=== PATIENT | female | born 1950 | race Caucasian/White ===

== ENCOUNTER 2016-08-10 16:11 | Emergency (ER) ==
[2016-08-10 16:26] VITALS: TEMP 97.7; BMI 42.5
--- NOTE | 2016-08-10 19:23 | ED.PDOC ---
[id number]: i worked out on treadmill and hurt my shoulders--im not hurting now i feel better --i dont want to be seen in the er Time Seen by Physician: 19:22 Mode of Arrival: Walk-In Information Source: Patient, Family Exam Limitations: No limitations Primary Care Provider: JORDANA TEE Nursing and Triage Documentation Reviewed and Agree: Yes Musculoskeletal Complaint Exam - Shoulder Pain Complaint/Exam Mechanism of Injury: Reports: No known trauma Onset/Duration: afew hours Symptoms Are: Still present Timing: Intermittent Initial Severity: Mild Current Severity: Mild Location: Reports: Discrete (both shoulders) Character: Reports: Dull, Aching, Stiffness Alleviating: Reports: None Aggravating: Reports: Movement, Lifting, Flexion, Extension, Internal rotation, External rotation Associated Signs and Symptoms: Denies: Swelling, Redness, Bruising, Fever, Weakness, Numbness, Tingling Non-Orthopedic Risk Factors: Reports: None Tenderness: Present: Rotator cuff muscles Differential Diagnoses: Arthritis, Rotator Cuff Injury, Sprain, Strain, Bursitis Review of Systems - Review Of Systems Constitutional: Reports: No symptoms Eyes: Reports: No symptoms Ears, Nose, Mouth, Throat: Reports: No symptoms Respiratory: Reports: No symptoms Cardiac: Reports: No symptoms GI: Reports: No symptoms : Reports: No symptoms Musculoskeletal: Reports: Joint pain Skin: Reports: No symptoms Neurological: Reports: No symptoms Endocrine: Reports: No symptoms Hematologic/Lymphatic: Reports: No symptoms All Other Systems: Reviewed and Negative Past Medical History - Past Medical History Endocrine: Reports: Unknown Cardiovascular: Reports: Unknown Respiratory: Reports: Unknown Hematological: Reports: Unknown Gastrointestinal: Reports: Unknown Genitourinary: Reports: Unknown Neuro/Psych: Reports: Unknown Musculoskeletal: Reports: Unknown Cancer: Reports: Unknown Last Menstrual Period: 2010 - Surgical History General Surgical History: Reports: Unknown - Family History Family History: Reports: Unknown - Social History Smoking Status: Never smoker Hx Substance Use: No Alcohol Screening: None Lives: With family - Immunizations Tetanus Shot up to Date: Yes Physical Exam - Physical Exam Appearance: Well-appearing, No pain distress, Well-nourished Eyes: GLORIA ENT: Ears normal Neck: Supple Respiratory: Airway patent, Breath sounds clear, Breath sounds equal, Respirations nonlabored Cardiovascular: RRR, Pulses normal, No rub, No murmur GI/: Soft, Nontender, No masses, Bowel sounds normal, No Organomegaly Musculoskeletal: Normal strength Skin: Warm, Dry, Normal color Neurological: Sensation intact, Motor intact, Reflexes intact, Cranial nerves intact, Alert, Oriented Psychiatric: Affect appropriate, Mood appropriate Re-Evaluation - Re-Evaluation Time of Re-Evaluation: 19:23 Status: Improved (no pain--bp improved) Vital Signs Stable: Yes Pain Level: 0 Appearance: NAD Lungs: Clear Skin: Warm and Dry Neuro: Alert and Oriented X3 CV: RRR Critical Care Note - Critical Care Note Total Time (mins): 0 Course - Course Orders, Labs, Meds: she waited in the er and her pain resolved--she decided she didnt want to be seen--declines xrays, labs and ekg--warned it could be cardiac but decided not to be seen Vital Signs: Temp Pulse Resp BP Pulse Ox 08/10/16 19:00 194/92 H 08/10/16 16:12 97.7 F 83 20 200/126 H 98 Departure - Departure Time of Disposition: 19:24 Disposition: AMA Discharge Problem: Shoulder pain Instructions: Shoulder Pain (ED) Condition: Good Pt referred to PMD for follow-up: Yes Additional Instructions: return if symptoms come back Allergies/Adverse Reactions: Allergies Penicillins Adverse Reaction (Verified 08/10/16 20:52) Home Medications: Ambulatory Orders Aspirin 81 mg PO DAILY 08/10/16 Cholecalciferol (Vitamin D3) [Vitamin D3] 1,000 unit PO DAILY 08/10/16 Clonidine HCl 0.2 mg PO DAILY 08/10/16 Lisinopril/Hydrochlorothiazide [Zestoretic 20-12.5 mg Tablet] 1 each PO DAILY Metformin HCl [Fortamet] 500 mg PO TID 08/10/16 Simvastatin 20 mg PO BEDTIME 08/10/16 Disposition Discussed With: Patient, Family
[2016-08-12 07:38] VITALS: BP 194/92
== END 2016-08-11 04:15 | disposition left against medical advice (07) ==
LOC: ED 16:11
DX: M25.512 Pain in left shoulder (principal); M25.511 Pain in right shoulder; R03.0 Elevated blood-pressure reading, without diagnosis of hypertension; Z79.899 Other long term (current) drug therapy; K63.1 Perforation of intestine (nontraumatic); M54.9 Dorsalgia, unspecified
CPT/HCPCS: 36415; 80053; 81001; 82150; 82550; 83690; 84484; 85025; 85379; 85651; 87086; 87186; 93005; 93010; 96361; 96365; 96375; 99284; 99285

== ENCOUNTER 2016-08-10 20:34 | Emergency (ER) ==
[2016-08-10 20:34] VITALS: BMI 42.5
[2016-08-10 20:46] VITALS: BP 178/97; TEMP 99.1
[2016-08-10] MEDS ORDERED: SODIUM CHLORIDE 1,000 ML IV STA (20:52)
[2016-08-10] MEDS ORDERED: TORADOL IVP STA (20:54)
[2016-08-10] MEDS ORDERED: MORPHINE 2 MG/ML SYRINGE IVP STA (20:54)
[2016-08-10] MEDS ORDERED: ZOFRAN 4 MG/2 ML IVP STA (20:54)
[2016-08-10 21:12] LABS: BASOPHILS % (AUTO) 0.3 % (0.0-3.0); HEMATOCRIT 40.8 % (37.0-47.0); HEMOGLOBIN 13.4 g/dl (12.0-16.0); IMMATURE GRANULOCYTE % (AUTO) 0.3 % (0.0-5.0); LYMPHOCYTES # (AUTO) 2.7 K/uL (0.60-3.4); LYMPHOCYTES % (AUTO) 17.6 (10.0-50.0); MEAN CORPUSCULAR HEMOGLOBIN 28.5 pg (27.0-31.0); MEAN CORPUSCULAR HGB CONC 32.8 (31.8-35.4); MEAN CORPUSCULAR VOLUME 86.8 fl (81.0-99.0); MONOCYTES # (AUTO) 0.6 K/uL (0.4-2.0); MONOCYTES % (AUTO) 3.9 (0-10); NEUTROPHILS # (AUTO) 12.1 K/ul (2.0-6.9); NEUTROPHILS % (AUTO) 77.9; PLATELET COUNT 300 10^3/uL (140-440); WHITE BLOOD COUNT 15.53 K/ul (4.6-10.2)
[2016-08-10 21:37] LABS: ALANINE AMINOTRANSFERASE 22 U/L (12-78); ALBUMIN 3.9 g/dL (3.4-5.0); ALBUMIN/GLOBULIN RATIO 0.98; ALKALINE PHOSPHATASE 90 U/L (53-141); AMYLASE 33 U/L (25-115); ANION GAP 17.2; ASPARTATE AMINO TRANSFERASE 17 U/L (15-37); BILIRUBIN,TOTAL 0.69 mg/dL (0.00-1.20); BLOOD UREA NITROGEN 17 mg/dL (7-18); BUN/CREATININE RATIO 17.34; CALCIUM 9.9 mg/dL (8.2-10.2); CARBON DIOXIDE 25 mmol/L (23-31); CHLORIDE 99 mmol/L (98-107); CREATINE KINASE 106 U/L; CREATININE 0.98 mg/dL (0.60-1.30); GLUCOSE 198 mg/dL (82-115); LIPASE 23 U/L (8-78); POTASSIUM 4.2 mmol/L (3.5-5.10); SODIUM 137 mmol/L (136-145); TOTAL PROTEIN 7.9 g/dL (5.8-8.1)
[2016-08-10] MEDS ORDERED: AZACTAM ONE (23:59)
[2016-08-11 01:37] LABS: ERYTHROCYTE SEDIMENTATION RATE 52 mm/hr (0-20); ESR INTERNAL QC INTERNAL QC VALID
[2016-08-11] MEDS ORDERED: AZACTAM 1 GM in SODIUM CHLORIDE 50 ML IV STA (03:03)
[2016-08-11 05:55] LABS: KETONES,URINE NEGATIVE (NEGATIVE); PH,URINE 5.5 (5-9); PROTEIN,URINE NEGATIVE (NEGATIVE); URINE, BLOOD NEGATIVE (NEGATIVE)
[2016-08-11 05:56] LABS: ADD URINE MICROSCOPIC YES; BILIRUBIN,URINE NEGATIVE (NEGATIVE); LEUKOCYTE ESTERASE ,URINE 1+ (NEGATIVE); NITRITE,URINE POSITIVE (NEGATIVE)
[2016-08-11 05:57] LABS: BACTERIA,URINE 4+ (NOT PRESENT)
--- NOTE | 2016-08-11 08:17 | CT ---
EXAM: CTA thorax HISTORY: Left shoulder pain COMPARISON: CTA thorax 01/21/2012 FINDINGS: Contiguous axial images obtained through the thorax following uneventful administration o f intravenous contrast utilizing 3-mm collimation. Sagittal, coronal oblique reconstructions were im aged and reviewed. Source images were utilized create rotating 3-D MIP images The thoracic inlet i s unremarkable. The heart is normal in size without pericardial effusion. There is no evidence of aneurysm, dissection or pulmonary embolus. Dependent atelectasis is seen in both posterior gutter r egions. There is a large amount free intraperitoneal air. Degenerative changes are seen within the mid and lower thoracic spine. IMPRESSION: There is no evidence of aneurysm, dissection or pulmonary embolus. There is a large amount of free intraperitoneal air. Critical results: Results were conveyed via telephone emergency room physician 11:11 p.m. 08/10/2016
--- NOTE | 2016-08-11 08:17 | CT ---
EXAM: CT of the abdomen and pelvis with IV contrast. HISTORY: Abdominal pain. PROCEDURE: After the intravenous injection of contrast contiguous axial CT images of the abdomen an d pelvis were obtained with coronal and sagittal reformats. FINDINGS: The liver, gallbladder, pancreas, spleen, adrenal glands and kidneys are normal in appear ance. The abdominal aorta is within normal limits in diameter. The appendix is not visualized. Th ere is diverticulosis of the colon with no evidence of diverticulitis. There is a large amount of f ree intraperitoneal air consistent with a perforated viscus. No free fluid in the abdomen or pelvis . The bladder is minimally filled with no abnormality identified. Uterus is unremarkable. There a re degenerative changes in the spine. Impression: Large amount of free intraperitoneal air consistent with a perforated viscus. The sour ce of the free intraperitoneal air is not identified. Recommend stat surgical consult. Diverticulosis of the colon. Critical result: Results discussed with the patient's ER physician Dr. Clarke on 08/10/2016 at 10: 57 p.m..
--- NOTE | 2016-08-11 08:17 | DI ---
EXAM: Left shoulder three views HISTORY: Pain COMPARISON: None. FINDINGS: Degenerative changes are noted about the acromioclavicular joint. The glenohumeral joint is intact. The surrounding soft tissues are unremarkable. There is left-sided subphrenic air. IMPRESSION: Degenerative changes AC joint. Left-sided subphrenic air.
--- NOTE | 2016-08-11 08:17 | DI ---
EXAM: Right shoulder three views HISTORY: Pain COMPARISON: None. FINDINGS: There is no acute fracture, dislocation or soft tissue calcification. The AC joint and g lenohumeral joint are well maintained. There is right-sided subphrenic air. IMPRESSION: Normal examination right shoulder. Right-sided subphrenic air.
--- NOTE | 2016-09-06 15:28 | ED.PDOC ---
General ED Provider: Dr. ALESHIA GALINDO-ER Chief Complaint: Extremity Pain/Injury Stated Complaint: My shoulder hurts. After I got home it started hurting worse so I came back. Time Seen by Physician: 21:00 Mode of Arrival: Walk-In Information Source: Patient, Family Exam Limitations: No limitations Nursing and Triage Documentation Reviewed and Agree: Yes Musculoskeletal Complaint Exam - Shoulder Pain Complaint/Exam Mechanism of Injury: Reports: No known trauma Symptoms Are: Still present Timing: Intermittent Initial Severity: Mild Current Severity: Moderate Location: Reports: Diffuse Character: Reports: Dull, Unable to describe Aggravating: Reports: None Associated Signs and Symptoms: Denies: Swelling, Redness, Bruising, Fever, Weakness, Numbness, Tingling Non-Orthopedic Risk Factors: Reports: None Septic Arthritis Risk Factors: Reports: None Related Surgical History: Reports: None Shoulder Findings: Absent: Swelling, Ecchymosis Differential Diagnoses: Other Quality Indicator For Non-Traumatic Chest Pain/Syncope: EKG Performed Review of Systems - Review Of Systems Constitutional: Reports: No symptoms Eyes: Reports: No symptoms Ears, Nose, Mouth, Throat: Reports: No symptoms Respiratory: Reports: No symptoms Cardiac: Reports: No symptoms GI: Reports: No symptoms : Reports: No symptoms Musculoskeletal: Reports: Back pain Skin: Reports: No symptoms Neurological: Reports: No symptoms Endocrine: Reports: No symptoms Hematologic/Lymphatic: Reports: No symptoms All Other Systems: Reviewed and Negative Past Medical History - Past Medical History Endocrine: Reports: Unknown Cardiovascular: Reports: Unknown Respiratory: Reports: Unknown Hematological: Reports: Unknown Gastrointestinal: Reports: Unknown Genitourinary: Reports: Unknown Neuro/Psych: Reports: Unknown Musculoskeletal: Reports: Unknown Cancer: Reports: Unknown Last Menstrual Period: na - Surgical History General Surgical History: Reports: Unknown - Family History Family History: Reports: Unknown - Social History Smoking Status: Never smoker Hx Substance Use: No Alcohol Screening: None - Immunizations Tetanus Shot up to Date: Yes Physical Exam - Physical Exam Appearance: Well-appearing, No pain distress, Well-nourished Pain Distress: Mild Eyes: GLORIA, EOMI, Conjunctiva clear ENT: Ears normal, Nose normal, Oropharynx normal Neck: Supple Respiratory: Airway patent, Breath sounds clear, Breath sounds equal, Respirations nonlabored Cardiovascular: RRR, Pulses normal, No rub, No murmur GI/: Soft, Nontender, No masses, Bowel sounds normal, No Organomegaly Musculoskeletal: Normal strength, ROM intact, No edema, No calf tenderness Skin: Warm, Dry, Normal color Neurological: Sensation intact, Motor intact, Reflexes intact, Cranial nerves intact, Alert, Oriented Psychiatric: Affect appropriate, Mood appropriate Interpretation - Radiology Interpretation Radiology Interpretation By: Radiologist Radiology Results: Positive Exam Interpreted: CT Scan Critical Care Note - Critical Care Note Total Time (mins): 0 Course - Course Hematology/Chemistry: 08/10/16 21:00 08/10/16 21:00 Orders, Labs, Meds: Lab Review 08/10/16 08/11/16 21:00 05:50 WBC 15.53 H RBC 4.70 Hgb 13.4 Hct 40.8 MCV 86.8 MCH 28.5 MCHC 32.8 RDW Coeff of Jerry 14.0 Plt Count 300 Immature Gran % (Auto) 0.3 Neut % (Auto) 77.9 Lymph % (Auto) 17.6 Giles % (Auto) 3.9 Eos % (Auto) 0.0 Baso % (Auto) 0.3 Immature Gran # (Auto) 0.1 Neut # 12.1 H Lymph # 2.7 Giles # 0.6 Eos # 0.0 Baso # 0.0 ESR 52 H D-Dimer 1.18 Sodium 137 Potassium 4.2 Chloride 99 Carbon Dioxide 25 Anion Gap 17.2 BUN 17 Creatinine 0.98 Estimated GFR (MDRD) 57.00 BUN/Creatinine Ratio 17.34 Glucose 198 H Calcium 9.9 Total Bilirubin 0.69 AST 17 ALT 22 Alkaline Phosphatase 90 Total Creatine Kinase 106 Troponin I < 0.0100 Total Protein 7.9 Albumin 3.9 Globulin 4.0 Albumin/Globulin Ratio 0.98 Amylase 33 Lipase 23 Urine Color Yellow Urine Clarity Cloudy Urine pH 5.5 Ur Specific [place] 1.015 Urine Protein Negative Urine Glucose (UA) Negative Urine Ketones Negative Urine Blood Negative Urine Nitrite Positive Urine Bilirubin Negative Urine Urobilinogen 0.2 Ur Leukocyte Esterase 1+ Urine Microscopic WBC 10-20 Ur Squamous Epith Cells 10-20 Urine Bacteria 4+ Urine Mucus 1+ Orders Category Date Time Status EKG-(ED ONLY) Stat CARDIO 08/10/16 20:51 Completed NPO REMINDER: IMAGING ONCE CARE 08/10/16 20:53 Completed TRANSFER TO OUTSIDE FACILITY .TO [facility] 08/10/16 23:20 Active ([facility]) WRITE TRANSFER/SBAR NOTE ONCE CARE 08/11/16 10:01 Active DISCHARGE ASSESSMENT ONCE DISCHARGE 08/11/16 10:01 Active WRITE DISCHARGE NOTE ONCE DISCHARGE 08/11/16 10:01 Active Service Loss Control Consultant [ED BLENDING TANK HELPER APPLIED] .ONCE EMERGENCY 08/10/16 20:54 Active IV [ED IV/MEDIPORT/POWERPORT] .ONCE EMERGENCY 08/10/16 20:52 Active AMYLASE Stat LAB 08/10/16 21:00 Completed CBC W/ AUTO DIFF Stat LAB 08/10/16 21:00 Completed COMPREHENSIVE METABOLIC PANEL Stat LAB 08/10/16 21:00 Completed CREATINE KINASE Stat LAB 08/10/16 21:00 Completed D-DIMER Stat LAB 08/10/16 21:00 Completed ESR Stat LAB 08/10/16 21:00 Completed LIPASE Stat LAB 08/10/16 21:00 Completed TROPONIN I Stat LAB 08/10/16 21:00 Completed UA [URINALYSIS C & S IF INDICATED] Stat LAB 08/11/16 05:50 Completed URINE CULTURE Routine LAB 08/11/16 03:50 Completed 0.9 % Sodium Chloride [Saline Flush] MEDS 08/10/16 20:52 Discontinued 1 syr IVF PRN PRN Aztreonam [Azactam] MEDS 08/10/16 23:59 Discontinued 1 gm .ROUTE .STK-MED ONE Aztreonam [Azactam] 1 gm MEDS 08/11/16 03:03 Discontinued 0.9 % Sodium Chloride [Sodium Chloride] 50 ml IV ONCE Ketorolac Tromethamine [Toradol] MEDS 08/10/16 20:54 Discontinued 30 mg IVP ONCE STA Morphine Sulfate [Morphine 2 mg/ml Syringe] MEDS 08/10/16 20:54 Discontinued 2 mg IVP ONCE STA Ondansetron HCl/Pf [Zofran 4 mg/2 ml] MEDS 08/10/16 20:54 Discontinued 4 mg IVP ONCE STA Sodium Chloride 0.9% [Sodium Chloride] 1,000 ml MEDS 08/10/16 20:52 Discontinued IV 100 mls/hr CT ABDOMEN/PELVIS W CONTRAST Stat RADS 08/10/16 20:[address] CHEST PE PROTOCOL Stat RADS 08/10/16 20:52 Completed SHOULDER, LEFT MIN 2V Stat RADS 08/10/16 20:54 Completed SHOULDER, RIGHT MIN 2V Stat RADS 08/10/16 20:54 Completed Medications Discontinued Medications Generic Name Dose Route Start Last Admin Trade Name Freq PRN Reason Stop Dose Admin Sodium Chloride 1,000 mls @ 100 mls/hr 08/10/16 20:52 08/10/16 21:17 Sodium Chloride IV 08/11/16 06:51 100 mls/hr .Q10H STA Administration Aztreonam 1 gm/ Sodium 50 mls @ 75 mls/hr 08/11/16 03:03 08/11/16 00:05 Chloride IV 08/11/16 03:42 75 mls/hr ONCE STA Administration Ketorolac Tromethamine 30 mg 08/10/16 20:54 08/10/16 21:19 Toradol IVP 08/10/16 20:55 30 mg ONCE STA Administration Morphine Sulfate 2 mg 08/10/16 20:54 08/10/16 21:22 Morphine 2 Mg/Ml Syringe IVP 08/10/16 20:55 2 mg ONCE STA Administration Ondansetron HCl 4 mg 08/10/16 20:54 08/10/16 21:21 Zofran 4 Mg/2 Ml IVP 08/10/16 20:55 4 mg ONCE STA Administration Sodium Chloride 1 syr 08/10/16 20:52 08/10/16 21:25 Saline Flush IVF 1 syr PRN PRN Administration To flush IV Vital Signs: Temp Pulse Resp BP Pulse Ox 08/10/16 20:35 99.1 F 94 H 20 178/97 H 98 Departure - Departure Time of Disposition: 23:47 Disposition: TSF SHORT-TRM HOSP Discharge Problem: Perforated abdominal viscus Instructions: Perforated Bowel (DC) Condition: Good Pt referred to PMD for follow-up: Yes Allergies/Adverse Reactions: Allergies Penicillins Adverse Reaction (Verified 08/10/16 20:52) Home Medications: Ambulatory Orders Aspirin 81 mg PO DAILY 08/10/16 Cholecalciferol (Vitamin D3) [Vitamin D3] 1,000 unit PO DAILY 08/10/16 Clonidine HCl 0.2 mg PO DAILY 08/10/16 Lisinopril/Hydrochlorothiazide [Zestoretic 20-12.5 mg Tablet] 1 each PO DAILY Metformin HCl [Fortamet] 500 mg PO TID 08/10/16 Simvastatin 20 mg PO BEDTIME 08/10/16 Transfer Form Completed: Yes Disposition Discussed With: Patient, Family
== END 2016-08-11 04:15 | disposition short-term general hospital (02) ==
LOC: ED 20:34
DX: K63.1 Perforation of intestine (nontraumatic) (principal); M25.519 Pain in unspecified shoulder; M54.9 Dorsalgia, unspecified; Z79.899 Other long term (current) drug therapy
CPT/HCPCS: 36415; 80053; 82150; 82550; 83690; 84484; 85025; 85379; 85651; 93005; 93010

== ENCOUNTER 2016-08-11 04:13 | Outpatient (CLI) ==
[2016-08-10 20:34] VITALS: BMI 42.5
== END 2016-08-11 04:14 ==
LOC: AMBL 04:13
PROVIDERS: ATTEND Emergency Medicine
DX: R10.9 Unspecified abdominal pain (principal)

== ENCOUNTER 2017-09-25 13:39 | Outpatient (CLI) | END 2017-09-25 13:40 | disposition home or self-care (01) | LOC: RAD 13:39 | PROVIDERS: ATTEND Internal Medicine | DX: Z12.31 Encounter for screening mammogram for malignant neoplasm of breast (principal) | CPT/HCPCS: 77067 ==

== ENCOUNTER 2017-10-04 10:31 | Outpatient (CLI) ==
--- NOTE | 2017-10-04 11:47 | MAMMO ---
EXAM: Right digital diagnostic mammogram History: Right breast calcifications. Comparison: Bilateral mammogram 09/25/2017 Findings: Right breast density is scattered. Additional spot magnification views of the right breas t confirm the presence of the clusters of calcifications as described on the screening mammogram. Th ere are no dominant masses. No architectural distortions Impression: Probably benign right breast clusters of calcifications. Recommend 6-month follow-up ri ght breast mammogram to document stability. BIRADS 3
== END 2017-10-04 10:32 | disposition home or self-care (01) ==
LOC: RAD 10:31
PROVIDERS: ATTEND Internal Medicine
DX: R92.1 Mammographic calcification found on diagnostic imaging of breast (principal)

== ENCOUNTER 2018-04-02 09:03 | Outpatient (CLI) ==
--- NOTE | 2018-04-02 11:45 | MAMMO ---
EXAM: Diagnostic right breast mammogram with tomosynthesis HISTORY: 6-month follow-up for calcifications. COMPARISON: Diagnostic mammogram 10/04/2017 FINDINGS: The small areas of benign-appearing calcifications in the central and lateral right breast are unchanged in comparison to prior study. There is no new or suspicious calcification identified. IMPRESSION: No change in appearance of two groups of right breast calcifications. Recommendations: Follow-up diagnostic right breast mammogram with annual screening exam in 6 months. BIRADS category III: Probable benign findings.
== END 2018-04-02 09:04 | disposition home or self-care (01) ==
LOC: RAD 09:03
PROVIDERS: ATTEND Internal Medicine
DX: R92.8 Other abnormal and inconclusive findings on diagnostic imaging of breast (principal)

== ENCOUNTER 2018-10-17 12:50 | Outpatient (CLI) ==
--- NOTE | 2018-10-19 11:14 | MAMMO ---
EXAM: Digital diagnostic mammogram with tomosynthesis HISTORY: Right breast calcifications, left breast screening COMPARISON: 04/02/2018, 10/04/2017, 09/25/2017 FINDINGS: Digital MLO and CC views of the right and left breast were performed. Additional spot co mpression magnification views right breast calcifications were performed. Tomosynthesis was performe d. Computer aided detection utilized. There are scattered fibroglandular densities. There are stab le grouped rounded calcifications in the right breast. There is no evidence for mass, asymmetry, dis tortion, or suspicious calcifications in the left breast. IMPRESSION: 1. Stable right breast calcifications that are probably benign. 2. Negative left breast mammogram. BIRADS category 3, probably benign
== END 2018-10-17 12:51 | disposition home or self-care (01) ==
LOC: RAD 12:50
PROVIDERS: ATTEND Internal Medicine
DX: R92.8 Other abnormal and inconclusive findings on diagnostic imaging of breast (principal)